=== PATIENT | female | born 1975 | race Caucasian/White ===

== ENCOUNTER → 2021-09-17 13:55 | Outpatient (CLI) | payer OTHER, SELFPAY ==
--- NOTE | ~2021-09-17 | MR_ITS ---
EXAMINATION: MR foot RT wo con DATE: 09/17/2021 14:36 INDICATION: Right hallux limitus. Right great toe pain. TECHNIQUE: Magnetic resonance imaging (MRI) of the right foot was performed without intravenous contr ast. Sequences included sagittal T1-weighted FSE and STIR FSE, long-axis PD-weighted FS FSE and PD-we ighted FSE, and short-axis PD-weighted FS FSE and T1-weighted FSE. COMPARISON: None FINDINGS: Bone alignment is normal. No fracture. There is severe osteoarthritis of first metatarsopha langeal joint with nonuniform areas of full-thickness cartilage loss, mild subchondral edema-like sig nal intensity, and osteophytes. There is an effusion of first metatarsophalangeal joint. Lisfranc lig ament is normal. The flexor and extensor tendons are normal. The musculature is normal. IMPRESSION: 1. Severe osteoarthritis of first metatarsophalangeal joint. 2. Effusion of first metatarsophalangeal joint. Reviewed, dictated and finalized at location A. ENER
== END ==
PROVIDERS: PCP Family Medicine
DX: M25.571 Pain in right ankle and joints of right foot (principal); M19.071 Primary osteoarthritis, right ankle and foot; M25.474 Effusion, right foot
CPT/HCPCS: 73718

== ENCOUNTER 2022-06-12 17:09 | Emergency (ER) | payer OTHER, SELFPAY ==
--- NOTE | ~2022-06-12 | XR_ITS ---
EXAM: XR foot RT min 3V DATE: 06/12/2022 18:45 HISTORY: fall today lateral foot pain in area of 5th metatarsal . COMPARISON: None available. FINDINGS: Normal mineralization. No fracture or dislocation. No lytic or blastic lesion. Mild first MTP joint degenerative change. No erosion or periosteal change. Soft tissues within normal limits. IMPRESSION: No acute osseous finding in the right foot. Reviewed, dictated and finalized at location K. ORM CAP OPERATOR
[2022-06-12 17:40] VITALS: BP 110/60; PULSE 68; RESP 20; TEMP 36.4; O2SAT 100
--- NOTE | 2022-06-12 18:04 | ED.LOWEXIN ---
HPI - Extremity Injury (Lower) General Chief Complaint: Extremity Injury, Lower Stated Complaint: injury Time Seen by Provider: 06/12/22 18:03 Source: patient and RN notes reviewed Mode of arrival: ambulatory Limitations: no limitations History of Present Illness HPI Narrative: 46-year-old female presents to concern for right foot pain. Reports prior to arrival she slipped down some stairs injuring her foot. She reports small contusion to the right elbow. Report right foot pain with weight-bearing. Reports difficulty flexing and extending the foot and bending the toes. MD complaint: foot injury Related Data Home Medications Medication Instructions Recorded Confirmed escitalopram oxalate 5 mg tablet 5 mg PO DAILY 06/12/22 06/12/22 metoprolol succinate 25 mg 25 mg PO DAILY 06/12/22 06/12/22 tablet,extended release 24 hr valacyclovir 500 mg tablet 500 mg PO DIRECTED 06/12/22 06/12/22 Allergies Allergy/AdvReac Type Severity Reaction Status Date / Time No Known Allergies Allergy Verified 06/12/22 17:40 Review of Systems Review of Systems: CONSTITUTIONAL: Denies malaise, chills, sweats, or fever. SKIN: Denies rash or itching, open skin, laceration, abrasion, redness, warmth, swelling. MUSCULOSKELETAL: Reports right foot pain NEUROLOGIC: Denies numbness, weakness All systems reviewed & are unremarkable except as noted in HPI and below PMFSH Comments At time of signature, agree with nursing past medical, surgical, social and family history. There is no relevant family history pertinent to the presenting complaint Exam Narrative: GENERAL: Well-appearing, well-nourished, and in no acute distress. HEAD: Normocephalic, atraumatic. EYES: PERRLA, conjunctivae clear NECK: Supple. CHEST: Speaks in full sentences. No respiratory distress. HEART: Regular rate and rhythm. Normal and equal peripheral pulses. EXTREMITIES: Right foot has normal strength and sensation, limited range of motion. Minimal lateral edema, no ecchymosis. Normal sensation with sensitivity to light touch and pain. Lateral foot tenderness. No open wounds, no skin tenting, no devitalized tissue or atrophy, no trophic changes, no obvious deformity, alignment normal, nearby joints and structures intact. Distal pulses palpable and equal bilaterally, skin warm, dry, pink. Capillary refill less than 3 seconds. SKIN: Warm, dry, no rash. NEURO: Alert and oriented x3. PSYCH: Normal mood and affect Course Course Emergency Course: Patient is aware of diagnosis, understands and agrees to treatment plan. Anticipatory guidance given. Patient agrees to follow-up as directed and is aware of reasons to seek care at the emergency department. Portions of this record may have been created with voice recognition software Level of Care: Express Care Visit Vital Signs Vital signs: Vital Signs Temperature 97.6 F 06/12/22 17:40 Pulse Rate 68 06/12/22 17:40 Respiratory Rate 20 06/12/22 17:40 Blood Pressure 110/60 06/12/22 17:40 Pulse Oximetry 100 06/12/22 17:40 Oxygen Delivery Room Air 06/12/22 17:40 Temperature 97.6 F 06/12/22 17:40 Pulse Rate 68 06/12/22 17:40 Respiratory Rate 20 06/12/22 17:40 Blood Pressure 110/60 06/12/22 17:40 Pulse Oximetry 100 06/12/22 17:40 Oxygen Delivery Room Air 06/12/22 17:40 Reviewed. MDM - Extremity Injury (Lower) MDM Narrative Medical decision making narrative: Patients injury and pain is consistent with musculoskeletal etiology. No signs of neurological or vascular compromise on exam. Compartments and tissues are soft without signs of compartment syndrome. Pain is felt appropriate for further evaluation on an outpatient basis. Imaging Data My impression: Images reviewed, interpreted by radiologist, agree, see report. Radiologist's impression: EXAM:? XR foot RT min 3V DATE: 06/12/2022 18:45 HISTORY: fall today lateral foot pain in area of 5th metatarsal . COMPARISON:? No
== END 2022-06-12 19:40 | disposition home or self-care (01) ==
PROVIDERS: Emergency Provider Nurse Practitioner
DX: S93.601A Unspecified sprain of right foot, initial encounter (principal); W10.9XXA Fall (on) (from) unspecified stairs and steps, initial encounter; I10 Essential (primary) hypertension; F41.9 Anxiety disorder, unspecified
CPT/HCPCS: 73630; 99213; G0463

== ENCOUNTER → 2022-12-12 08:12 | Outpatient (CLI) | payer BC, SELFPAY ==
--- NOTE | ~2022-12-12 | US_ITS ---
US right upper quadrant INDICATION: Right upper quadrant pain PROCEDURE: Realtime right upper abdominal ultrasound. COMPARISON: No prior studies for comparison. FINDINGS: The pancreas is normal without focal mass or pancreatic ductal dilation. Liver echotexture is normal without focal mass or intrahepatic biliary dilatation. There is normal directional flow i n the portal vein. The gallbladder is normal without stones, gallbladder wall thickening or pericholecystic fluid. Comm on bile duct measures 4 mm. No sonographic Villafana's sign. IMPRESSION: 1: Normal limited abdominal ultrasound. Reviewed, dictated and finalized at location D.
== END ==
PROVIDERS: PCP Physician Assistant
DX: R10.11 Right upper quadrant pain (principal)
CPT/HCPCS: 76705

== ENCOUNTER → 2023-08-28 10:15 | Outpatient (CLI) | payer BC, SELFPAY ==
--- NOTE | ~2023-08-28 | CT_ITS ---
CT of the Abdomen: Indication: Abdominal pain Technique: 2.5 mm axial scans were obtained through the abdomen following intravenous administration of 100 cc of Omnipaque 350. Dose reduction technique was used on this scan by utilizing automated ex posure control and iterative reconstruction technique. The dose-length product (DLP) was 166.03 mGy-c m. Findings: Scans through the lung bases are unremarkable. The liver, spleen, pancreas, gallbladder, adrenals and kidneys are within normal limits. No evidence of aortic aneurysm. No lymphadenopathy. Visualized bowel loops are unremarkable. No ascites. Impression: No significant abnormalities seen. Reviewed, dictated and finalized at location M. TENANCE AND ENGINEERING MANAGER Impression: No significant abnormalities seen.
== END ==
PROVIDERS: PCP Family Medicine; Visit Provider Family Medicine
DX: R10.11 Right upper quadrant pain (principal)
CPT/HCPCS: 74160; Q9967

== ENCOUNTER 2025-04-20 10:17 | Outpatient (CLI) | payer BC, SELFPAY ==
--- NOTE | ~2025-04-20 | US_ITS ---
EXAMINATION: US thyroid DATE: 04/20/2025 10:33 INDICATION: Thyromegaly TECHNIQUE: Multiple ultrasound images of the thyroid were obtained. COMPARISON: None. FINDINGS: The right thyroid lobe measures 4.1 x 1.6 x 0.8 cm. The left thyroid lobe measures 3.7 x 1.2 x 1.0 cm. No discrete nodules identified. There is normal echotexture, echogenicity and vascular flow throughout the thyroid gland. IMPRESSION: 1. Normal thyroid ultrasound. Reviewed, dictated and finalized at location A.
== END 2025-04-20 10:18 | disposition home or self-care (01) ==
LOC: MICIMG 10:18
PROVIDERS: PCP Family Medicine; Visit Provider Family Medicine
DX: E01.0 Iodine-deficiency related diffuse (endemic) goiter (principal)
CPT/HCPCS: 76536